=== PATIENT | male | born 1975 ===

== ENCOUNTER 2020-12-01 14:52 | Emergency (ER) | payer SELFPAY ==
[2020-12-01 15:04] VITALS: BP 148/81
[2020-12-01 16:57] LABS: Bilirubin,Urine NEG (Negative); Blood,Urine NEG (Negative); Color,Urine Yellow (Yellow); Protein,Urine <15 mg/dL mg/dL (Negative); Urobilinogen,Urine < 2.0 mg/dL (<2.0)
--- NOTE | 2020-12-01 20:58 | Emergency Department Report ---
ED General Adult HPI - General Chief complaint: Urogenital-Male Stated complaint: KIDNEY STONES Time Seen by Provider: 12/01/20 20:08 Source: patient Mode of arrival: Ambulatory Limitations: No Limitations - History of Present Illness Initial comments: 45-year-old male patient with history of kidney stones presents to the emergency department with complaints of lower abdominal pain and testicular pain starting yesterday. Testicular pain is exacerbated by urination. No preceding fall, trauma, or injury. Patient states symptoms are reminiscent of prior kidney stone. No history of prior abdominal surgeries. Denies fever, chills, nausea, vomiting, hematuria, testicular swelling, penile discharge. Denies all other complaints at this time. Severity scale (0 -10): 6 - Related Data Previous Rx's Medication Instructions Recorded Last Taken Type Ciprofloxacin HCl 500 mg PO BID 7 Days tablet 12/02/20 Unknown Rx Tamsulosin [Flomax] 0.4 mg PO QDAY 7 Days cap 12/02/20 Unknown Rx Allergies Allergy/AdvReac Type Severity Reaction Status Date / Time No Known Allergies Allergy Verified 12/02/20 00:19 ED Review of Systems ROS: Stated complaint: KIDNEY STONES Other details as noted in HPI Other: GENERAL: Negative for fever, chills, weight change, anorexia, fatigue. ENT: Negative for ear pain, difficulty hearing, sore throat, nasal congestion, epistaxis. CARDIOVASCULAR: Negative for chest pain, palpitations, lower extremity swelling. PULMONARY: Negative for cough, dyspnea, wheezing, orthopnea, cyanosis. GASTROINTESTINAL: Positive for abdominal pain. GENITOURINARY: Positive for testicular pain MUSCULOSKELETAL: Negative for joint pain, joint swelling, myalgias, back pain, neck pain. NEUROLOGICAL: Negative for headache, seizure, syncope, paresthesias, weakness. INTEGUMENTARY: Negative for erythema, rash, diaphoresis, laceration, ecchymosis. HEMATOLOGICAL: Negative for hemoptysis, hematemesis, hematochezia, hematuria. PSYCHIATRIC: Negative for hallucinations, suicidal ideation, homicidal ideation, anxiety, depression. ED Past Medical Hx - Past Medical History Previous Medical History?: No - Surgical History Past Surgical History?: No - Medications Home Medications: Home Medications Medication Instructions Recorded Confirmed Last Taken Type Ciprofloxacin HCl 500 mg PO BID 7 Days tablet 12/02/20 Unknown Rx Tamsulosin [Flomax] 0.4 mg PO QDAY 7 Days cap 12/02/20 Unknown Rx ED Physical Exam - General Limitations: No Limitations - Other Other exam information: General: Awake and alert. No acute distress. Head: Atraumatic, normocephalic. Eyes: EOMI. Pupils are equal and round. Normal sclera and conjunctiva. ENT: Oral mucosa is moist. Normal pharyngeal exam. Neck: Supple. No lymphadenopathy. Pulmonary: No respiratory distress. Clear to auscultation bilaterally. Cardiac: Regular rate and rhythm. Pulses are palpable and equal bilaterally. No lower extremity cyanosis or edema. Skin: Warm and dry. No rashes. Abdomen: Soft, non-protuberant. Suprapubic tenderness without guarding, rigidity, or rebound. Bowel sounds are normal. No organomegaly or masses noted. Pelvic: Male dye weigher (KALI Estrada) present. Normal external inspection. No evidence of inguinal hernia. No scrotal edema. Mild mid-posterior testicular tenderness without overlying warmth or erythema. No crepitus. No testicular asymmetry. No blood or discharge at the urethral meatus. Uncircumcised. No rashes or lesions. Back: Normal alignment. No CVA tenderness. Extremities: Symmetrical. Full range of motion intact. Neurological: Alert and oriented, appropriately interactive, no focal deficits. Psych: Cooperative. Appropriate mood and affect. Speech is evenly metered. Thoughts are logically construed. ED Course Vital Signs 12/01/20 15:03 Temperature 98.2 F Pulse Rate 65 Respiratory 18 Rate Blood Pressure 148/81 [Right] O2 Sat by Pulse 98 Oximetry ED Medical Decision Making - Lab Data Result diagrams: 12/01/20 20:39 12/01/20 20:39 - Radiology Data [facility] [address] [place] [address] Cat Scan Report Signed Patient: MICHELE MURPHY MR#: [id number] : 1975 Acct:[id number] Age/Sex: 45 / M ADM Date: 12/01/20 Loc: ED Attending Dr: Ordering Physician: UMER HUNG Date of Service: 12/01/20 Procedure(s): CT abdomen pelvis w con Accession Number(s): [id number] cc: UMER HUNG CT ABDOMEN AND PELVIS WITH CONTRAST HISTORY: U.T.I. +/- kidney stone. COMPARISON: None. TECHNIQUE: CT images of the abdomen and pelvis were obtained following administration of intravenous contrast. All CT scans at this location are performed using CT dose reduction for ALARA by means of automated exposure control. CONTRAST: 100 ml of intravenous contrast administered. FINDINGS: Lungs/bones: Lung bases are clear. Degenerative changes in the spine and pelvis with nothing acute. Abdomen/pelvis: There is hepatic steatosis. The liver is otherwise unremarkable. The gallbladder, spleen, pancreas, adrenals, kidneys, and proximal GI tract appear unremarkable. Urinary bladder is unremarkable. Prostate is unremarkable except there is a stone directly in the midline measuring 9 x 6 mm on image #186 of series #2 which projects over the region of the prosta tic urethra near the base of the bladder. No pelvic free fluid. No acute colonic abnormality. The appendix is normal. IMPRESSION: 1. Midline stone in the expected region of the prostatic urethra near the base of the bladder as outlined above may be seen with evolving stone passage. The bladder is not significantly distended and there is no hydronephrosis. Signer Name: Christopher Nascimento MD Signed: 12/01/2020 11:26 PM Workstation Name: [id number] Transcribed By: ROYA Dictated By: Christopher Nascimento MD Electronically Authenticated By: Christopher Nascimento MD Signed Date/Time: 12/01/202325 DD/ 23 TD/TT: - Medical Decision Making Differential diagnosis including but not limited to: pyelonephritis, nephrolithiasis, urinary tract infection, prostatitis, ureteral obstruction, acute kidney injury On reevaluation, patient remains stable. Labs are unremarkable. Urinalysis shows 40 RBC's/WBC's as well as candiduria. Treated with IV Rocephin and one- time dose of Diflucan. Testicular ultrasound without acute process. CT of the abdomen/pelvis shows evidence of kidney stone at the base of the bladder. Patient's renal function is within normal limits and he has continued to pass urine without issues. No clinical indication for further diagnostic work-up and/or emergent urological consultation at this time. Patient will be discharged home with Flomax, Ciprofloxacin, and referral to urologist for close outpatient follow-up. Emphasized the importance of staying well-hydrated. Patient expressed understanding and is agreeable to plan of care. Strict return precautions provided. Repeat exam is unremarkable and benign. History, exam, diagnostic testing, and current condition do not suggest worrisome pathology to warrant further testing, continued ED treatment, admission, or surgical evaluation at this point. Given the low probability of a significant medical illness, it would be more likely to result in harm than benefit to perform further testing at this stage. Discussed findings, presumptive diagnosis, need for follow-up and specific signs/symptoms that should prompt immediate return to the emergency department. Instructions were explained in detail to the patient in addition to giving written discharge information. Patient expressed understanding and was given the opportunity to ask questions, all of which were satisfactorily answered prior to discharge home. Case discussed with Dr. Cruz, attending emergency physician, who agrees with diagnostic work-up/plan of care. Critical care attestation.: If time is entered above; I have spent that time in minutes in the direct care of this critically ill patient, excluding procedure time. ED Disposition Clinical Impression: Kidney stone, Candiduria Urinary tract infection Qualifiers: Urinary tract infection type: acute cystitis Hematuria presence: without hematuria Qualified Code(s): N30.00 - Acute cystitis without hematuria Disposition: TO HOME OR SELFCARE Is pt being admited?: No Does the pt Need Aspirin: No Condition: Stable Instructions: Kidney Stones, [id number], Urinary Tract Infection, Adult Additional Instructions: Take Tylenol every 4 hours and Motrin every 8 hours as needed for pain. Take Ciprofloxacin with food as directed. Increase your dietary intake of probiotic rich foods while taking this medication. Take Flomax as directed. Drink plenty of fluids. Follow-up with urologist this week. Call tomorrow to schedule appointment. See referral information below. Return to the emergency department immediately for new or worsening symptoms. Specifically, return to the emergency department immediately for fever, worsening pain, inability to use the bathroom, vomiting, or any other concerns. Prescriptions: Ciprofloxacin HCl 500 mg PO BID 7 Days tablet Tamsulosin [Flomax] 0.4 mg PO QDAY 7 Days cap Referrals: CANDELARIO MAGANA MD [Staff Physician] - 3-5 Days Time of Disposition: 00:32
[2020-12-01 21:03] LABS: Basophils % (Auto) 0.3 % (0.0-1.8); Eosinophils # (Auto) 0.1 K/mm3 (0.0-0.4); Eosinophils % (Auto) 2.5 % (0.0-4.3); Hematocrit 43.5 % (35.5-45.6); Hemoglobin 14.6 gm/dl (11.8-15.2); Lymphocytes # (Auto) 2.3 K/mm3 (1.2-5.4); Lymphocytes % (Auto) 44.7 % (13.4-35.0); Mean Corpuscular HGB Conc 34 % (32-34); Mean Corpuscular Volume 86 fl (84-94); Monocytes # (Auto) 0.5 K/mm3 (0.0-0.8); Monocytes % (Auto) 9.2 % (0.0-7.3); Platelet Count 260 K/mm3 (140-440); Red Blood Count 5.03 M/mm3 (3.65-5.03); Red Cell Distribution Width 15.1 % (13.2-15.2)
[2020-12-01 21:19] LABS: Alanine Aminotransferase 58 units/L (7-56); Albumin 4.5 g/dL (3.9-5); BUN/Creatinine Ratio 16; Blood Urea Nitrogen 14 mg/dL (9-20); Calcium 9.1 mg/dL (8.4-10.2); Hemolysis Index 12
--- NOTE | 2020-12-01 22:42 | Ultrasound Report ---
Scrotal Ultrasound HISTORY: testicular pain. TECHNIQUE: Grayscale and color imaging performed. COMPARISON: None FINDINGS: Right testicle measures 3.7 x 2.1 x 2.7 cm and the left measures 3.8 x 2.3 x 3.6 cm. Both t esticles demonstrate preserved blood flow. Punctate hypodensities in each testicle are described as c ysts. No hydrocele or varicocele. Each epididymal head is normal. IMPRESSION: Nothing acute. Incidental findings as above Signer Name: Christopher Nascimento MD Signed: 12/01/2020 10:38 PM Workstation Name: [id number]
--- NOTE | 2020-12-01 23:31 | Cat Scan Report ---
CT ABDOMEN AND PELVIS WITH CONTRAST HISTORY: U.T.I. +/- kidney stone. COMPARISON: None. TECHNIQUE: CT images of the abdomen and pelvis were obtained following administration of intravenous contrast. All CT scans at this location are performed using CT dose reduction for ALARA by means of automated exposure control. CONTRAST: 100 ml of intravenous contrast administered. FINDINGS: Lungs/bones: Lung bases are clear. Degenerative changes in the spine and pelvis with nothing acute. Abdomen/pelvis: There is hepatic steatosis. The liver is otherwise unremarkable. The gallbladder, sp glenn, pancreas, adrenals, kidneys, and proximal GI tract appear unremarkable. Urinary bladder is unremarkable. Prostate is unremarkable except there is a stone directly in the mid line measuring 9 x 6 mm on image #186 of series #2 which projects over the region of the prostatic ur ethra near the base of the bladder. No pelvic free fluid. No acute colonic abnormality. The appendix is normal. IMPRESSION: 1. Midline stone in the expected region of the prostatic urethra near the base of the bladder as outl ined above may be seen with evolving stone passage. The bladder is not significantly distended and th ere is no hydronephrosis. Signer Name: Christopher Nascimento MD Signed: 12/01/2020 11:26 PM Workstation Name: [id number]
[2020-12-02] MEDS ORDERED: cefTRIAXone/NS 1 GM/50 ML 1 GM/50 ML BAG IV ONE (00:13)
[2020-12-02] MEDS ORDERED: LIDOCAINE-MPF (1%) 10 MG/1 ML VIAL 5 ML INFILTRATI ONE (00:13)
[2020-12-02] MEDS ORDERED: FLUCONAZOLE 100 MG TAB PO ONE (00:16)
[2020-12-02] MEDS ORDERED: FLUCONAZOLE 200 MG TAB PO ONE (00:25)
== END 2020-12-02 02:22 | disposition home or self-care (01) ==
LOC: ED 14:52
DX: N20.0 Calculus of kidney (principal); N39.0 Urinary tract infection, site not specified
CPT/HCPCS: 36415; 74177; 80053; 81001; 85025; 87086; 93975; 96365; 99284; J0696; Q9967